=== PATIENT | male | born 1945 | race Caucasian/White ===

== ENCOUNTER → 2016-04-29 | Outpatient (CLI) | payer MEDICARE, BC | END | disposition disaster alternative care site (69) | LOC: GAIR 15:51 | DX: N17.9 Acute kidney failure, unspecified (principal); E11.65 Type 2 diabetes mellitus with hyperglycemia; E87.5 Hyperkalemia; I10 Essential (primary) hypertension; I48.2 Chronic atrial fibrillation; R79.89 Other specified abnormal findings of blood chemistry; R11.0 Nausea; Z79.899 Other long term (current) drug therapy | CPT/HCPCS: A0422; A0431; A0436 ==